=== PATIENT | female | born 1995 ===

== ENCOUNTER 2019-11-30 23:28 | Emergency (ER) | payer MEDICAID, SELFPAY ==
[2019-11-30 23:33] VITALS: BP 120/63; PULSE 88; RESP 18; TEMP 37.1; O2SAT 98; BMI 24.4
--- NOTE | 2019-11-30 23:45 | ED_ITS ---
HPI - Abdominal Pain General: Chief Complaint: Abdominal Pain Stated Complaint: abd pain Time Seen by Provider: 11/30/19 23:42 History of Present Illness: HPI narrative: Patient is a 24-year-old female comes to the ED with abdominal pain. Patient says pain started approximately 3 days ago. She describes the pain as sharp and aching pain in the epigastric and right upper quadrant of the abdomen. She rates the pain currently a 10 out of 10. She has had some nausea with this pain and says she has had 2 episodes of emesis. Denies any blood in the emesis. Patient says pain gets worse after she eats. She also says pain gets worse when she lays flat. Denies any fever, chills, diarrhea, constipation, blood in the stool, dysuria, hematuria, vaginal discharge or vaginal bleeding. Patient denies any chance of being and currently is control implant Nexplanon in [facility]. Associated Symptoms: Reports nausea and vomiting; Denies chills, constipation, diarrhea, dysuria, fever(s), hematochezia and hematuria Review of Systems Const: Denies: fever(s), chills or fatigue Eyes: Denies: change in vision or eye discomfort ENMT: Denies: throat pain, odynophagia, nasal discharge or nasal congestion Card: Denies: chest pain, palpitations, edema, swelling of feet/ankles, dyspnea on exertion or orthopnea Resp: Denies: dyspnea, productive cough or non-productive cough GI: Reports: abdominal pain (RUQ and epigastric region), nausea and vomiting; Denies: diarrhea, constipation or hematochezia : Denies: flank pain, dysuria or hematuria Musc: Denies: neck pain, back pain or extremity swelling Skin/Breast: Denies: rash or new lesions Neuro: Denies: headache(s), numbness in extremities or weakness in extremities Physical Exam Const: COMMON NORMALS: no acute distress, patient oriented x3, healthy appearing and alert GENERAL APPEARANCE: cooperative, comfortable and well hydrated HENMT: COMMON NORMALS: normocephalic HEAD & SCALP: normocephalic MOUTH: Normal oral and palatal mucosa present THROAT: posterior oropharynx normal and uvula midline Eye: COMMON NORMALS: Equal, round and reactive pupils present PUPIL: Yes Equal, round and reactive pupils present Neck/C-Spine: COMMON NORMALS: supple GENERAL: Yes normal visual inspection Resp: COMMON NORMALS: normal respiratory effort, No retractions, No use of accessory muscles and clear to auscultation bilaterally AUSCULTATION: clear to auscultation bilaterally Cardio: COMMON NORMALS: regular rate, regular rhythm, S1 normal heart sound present, S2 normal heart sound present, No gallops present (Cardio), No clicks present (Cardio), No murmurs present (Cardio) and Peripheral pulses 2+ throughout RATE: regular rate RHYTHM: regular rhythm HEART SOUNDS: S1 normal heart sound present and S2 normal heart sound present PERIPHERAL PULSES: Peripheral pulses 2+ throughout GI: COMMON NORMALS: Normal to inspection, nondistended, normoactive bowel sounds present, Soft to palpation and no masses AUSCULTATION: Yes normoactive bowel sounds PALPATION: Yes Soft to palpation and Yes Tenderness to palpation present (GI) Details: RUQ (positive delacruz sign) and other (epigastric region) : COMMON NORMALS: Yes no CVA tenderness BLADDER/KIDNEY EXAM: Yes no CVA tenderness Back/Pelvis: COMMON NORMALS: no CVA tenderness Extremity: COMMON NORMALS: normal to inspection, capillary refill normal and no pedal edema Neuro: COMMON NORMALS: patient oriented x3 SENSORIUM/ORIENTATION: Yes alert GAIT: Yes Normal gait present Skin: COMMON NORMALS: no rashes or lesions noted GENERAL SKIN EXAM: no rashes or lesions noted and dry skin Course Reevaluation(s): Reevaluation #1: I went in to check on patient and reevaluate pain and symptoms after GI cocktail Zofran and morphine was given. Patient says she is feeling a lot better and her symptoms have almost completely improved. Time: 01:01 Vital Signs: Vital signs: Vital Signs Temperature 98.7 F 11/30/19 23:33 Pulse Rate 81 12/01/19 01:30 Respiratory Rate 17 12/01/19 01:30 Blood Pressure 106/60 12/01/19 01:30 Pulse Oximetry 100 12/01/19 01:30 MDM - Abdominal Pain MDM Narrative: Medical decision making narrative: Patient is a 24-year-old female who comes to the ED with right upper quadrant and epigastric pain, nausea and vomiting. Physical exam showed a patient in no acute distress or pain. Patient had some mild epigastric tenderness and right upper quadrant tenderness with positive Delacruz sign. White blood cell count 3.4 and the rest CBC CMP and UA were unremarkable. Lipase 32 and hCG negative. Ultrasound of gallbladder was performed and showed no acute findings. Patient was given IV morphine, fluids, Zofran and pain improved. Acid reflux symptoms improved after GI cocktail. After treatment patient was feeling a lot better and ready to go home. Patient was diagnosed with acid reflux and biliary colic symptoms. She was discharged with a prescription for pantoprazole and Zofran. She is told to follow-up with her PCP in 7 to 10 days for reevaluation. Start with a clear liquid diet for the next 24 hours and advance as tolerated. Return to ED precautions given. Patient understood and agreed with plan. Lab Data: Attestation: I reviewed the patient's lab results. Labs: Lab Results 11/30/19 11/30/19 12/01/19 Range/Units 00:08 00:08 00:45 WBC 3.4 L (4.0-10.0) 10^3/ uL RBC 3.15 L (4.1-5.3) 10^6/u L Hgb 10.7 L (11.5-15.3) g/dL Hct 32.6 L (37.0-47.0) % MCV 103.5 H (81-99) fL MCH 34.0 (28.0-34.0) pg MCHC 32.8 (30.0-36.0) g/dL RDW 11.7 L (12.1-15.1) % Plt Count 195 (130-400) 10^3/c mm MPV 11.3 H (7.4-10.4) fL Neut % (Auto) 63.2 % Lymph % (Auto) 27.1 % [place] % (Auto) 8.5 % Eos % (Auto) 0.6 % Baso % (Auto) 0.3 % Neut # (Auto) 2.15 (1.8-7.7) 10^3/u L Lymph # (Auto) 0.9 (0.8-4.8) 10^3/u L [place] # (Auto) 0.3 (0.2-0.9) 10^3/u L Eos # (Auto) 0.0 (0.0-0.8) 10^3/u L Baso # (Auto) 0.0 (0.0-0.1) 10^3/u L Nucleated RBC % (a uto) 0 % Nucleated RBCs # 0.0 /100WBC Sodium 137 (136-145) mmol/L Potassium 3.9 (3.5-5.1) mmol/L Chloride 105 (98-107) mmol/L Carbon Dioxide 24 (22-29) mmol/L Anion Gap 11.9 (5-19) BUN 9 (6-20) mg/dL Creatinine 0.5 (0.5-0.9) mg/dL GFR Calculation 150.3 H (90-130) mL/min Glucose 102 (65-115) mg/dL Calculated Osmolal ity 280 L (285-295) mOsm/k g Calcium 8.5 (8.5-10.5) mg/dL Total Bilirubin 0.8 (0.15-1.2) mg/dL AST 21 (0-32) U/L ALT 16 (0-33) U/L Alkaline Phosphata se 61 (35-105) IU/L Total Protein 6.9 (6.6-8.7) g/dL Albumin 4.4 (3.5-5.2) g/dL Globulin 2.5 (1.3-4.6) g/dL Lipase 32 (13-60) U/L HCG, Qual Negative (Negative) Urine Color (Yellow) Urine Appearance (CLEAR) Urine pH (5-7) Ur Specific Gravit y (1.005-1.030) Urine Protein (Negative) Urine Glucose (UA) (Normal) Urine Ketones (Negative) Urine Blood (Negative) Urine Nitrate (Negative) Urine Bilirubin (NEGATIVE) Urine Urobilinogen (Negative) mg/dL Ur Leukocyte Vesta ase (Negative) 12/01/19 Range/Units 00:45 WBC (4.0-10.0) 10^3/ uL RBC (4.1-5.3) 10^6/u L Hgb (11.5-15.3) g/dL Hct (37.0-47.0) % MCV (81-99) fL MCH (28.0-34.0) pg MCHC (30.0-36.0) g/dL RDW (12.1-15.1) % Plt Count (130-400) 10^3/c mm MPV (7.4-10.4) fL Neut % (Auto) % Lymph % (Auto) % [place] % (Auto) % Eos % (Auto) % Baso % (Auto) % Neut # (Auto) (1.8-7.7) 10^3/u L Lymph # (Auto) (0.8-4.8) 10^3/u L [place] # (Auto) (0.2-0.9) 10^3/u L Eos # (Auto) (0.0-0.8) 10^3/u L Baso # (Auto) (0.0-0.1) 10^3/u L Nucleated RBC % (a uto) % Nucleated RBCs # /100WBC Sodium (136-145) mmol/L Potassium (3.5-5.1) mmol/L Chloride (98-107) mmol/L Carbon Dioxide (22-29) mmol/L Anion Gap (5-19) BUN (6-20) mg/dL Creatinine (0.5-0.9) mg/dL GFR Calculation (90-130) mL/min Glucose (65-115) mg/dL Calculated Osmolal ity (285-295) mOsm/k g Calcium (8.5-10.5) mg/dL Total Bilirubin (0.15-1.2) mg/dL AST (0-32) U/L ALT (0-33) U/L Alkaline Phosphata se (35-105) IU/L Total Protein (6.6-8.7) g/dL Albumin (3.5-5.2) g/dL Globulin (1.3-4.6) g/dL Lipase (13-60) U/L HCG, Qual (Negative) Urine Color Yellow (Yellow) Urine Appearance Clear (CLEAR) Urine pH 6 (5-7) Ur Specific Gravit y 1.015 (1.005-1.030) Urine Protein Neg (Negative) Urine Glucose (UA) Norm (Normal) Urine Ketones Negative (Negative) Urine Blood Neg (Negative) Urine Nitrate Negative (Negative) Urine Bilirubin Neg (NEGATIVE) Urine Urobilinogen Norm (Negative) mg/dL Ur Leukocyte Vesta ase Negative (Negative) Imaging Data ^: US: Attestation: I personally reviewed and interpreted this imaging study as follows : Radiologist's impression: Ultrasound gallbladder?prelim report no gallstones seen. Gallbladder wall normal thickness and no common bile duct obstruction seen. Normal and unremarkable ultrasound. Discharge Plan Discharge Patient Disposition: Home Clinical Impression: Biliary colic symptom Acid reflux Qualifiers: Esophagitis presence: esophagitis presence not specified Qualified Code(s): K21.9 - Gastro-esophageal reflux disease without esophagitis Condition: Stable Prescriptions: New Zofran 4 mg tablet 4 mg PO Q8H Qty: 10 RF: 0 pantoprazole 40 mg tablet,delayed release (DR/EC) 40 mg PO DAILY Qty: 30 RF: 0 Discharge Orders: Discharge Order (Routine); Ordered 12/01/19 Ordered By: Obinna Coronado Discharge Diet: Advance as tolerated and Clear Liquid Discharge Activity: Increase activity as tolerated Patient Instructions: Biliary Colic (ED), Clear Liquid Diet (ED), Gastroesophageal Reflux Disease (ED) Activity Restrictions/Additional Instructions: Follow-up with medical provider as directed in 7-10 days. Take medications as prescribed. Start with a clear liquid diet for the next 24 hours then slowly advance diet as tolerated. Return to the ER or your medical provider if condition worsens. Please read and understand discharge instructions. If any questions, please ask. Coding Level of Care Code ED Credit Consultant for Chg Fwd Exam Comprehensive
[2019-12-01] MEDS: ondansetron 2 mg/ML SDV 2 mL 4 MG IVP (00:12)
[2019-12-01 00:13] VITALS: RESP 16
[2019-12-01] MEDS: morphine 4 mg/mL SDV 1 mL 2 MG IVP (00:13)
[2019-12-01] MEDS: lidocaine 2% viscous 15 ML, aluminum-mag hydrox-simethicon 30 ML, sucralfate oral liq 1 GM PO (00:14)
[2019-12-01] MEDS: sodium chloride 0.9% 1,000 ML 999 ML IV (00:17)
[2019-12-01 00:36] LABS: Alanine Aminotransferase 16 U/L (0-33); Albumin Level 4.4 g/dL (3.5-5.2); Alkaline Phosphatase 61 IU/L (35-105); Blood Urea Nitrogen 9 mg/dL (6-20); Calcium 8.5 mg/dL (8.5-10.5); Carbon Dioxide 24 mmol/L (22-29); Chloride 105 mmol/L (98-107); Globulin 2.5 g/dL (1.3-4.6); Glomerular Filtration Rate 150.3 mL/min (90-130); Glucose 102 mg/dL (65-115); Lipase 32 U/L (13-60); Osmolality Calculated 280 mOsm/kg (285-295); Sodium 137 mmol/L (136-145); Total Bilirubin 0.8 mg/dL (0.15-1.2); Total Protein 6.9 g/dL (6.6-8.7)
[2019-12-01 00:37] LABS: Anion Gap 11.9 (5-19); Aspartate Amino Transferase 21 U/L (0-32); Potassium 3.9 mmol/L (3.5-5.1)
[2019-12-01 00:40] LABS: Basophils % 0.3 %; Eosinophils % 0.6 %; Hematocrit 32.6 % (37.0-47.0); Hemoglobin 10.7 g/dL (11.5-15.3); Lymphocytes # 0.9 10^3/uL (0.8-4.8); Lymphocytes % 27.1 %; Mean Corpuscular HGB Conc 32.8 g/dL (30.0-36.0); Mean Corpuscular Volume 103.5 fL (81-99); Mean Platelet Volume 11.3 fL (7.4-10.4); Monocytes # 0.3 10^3/uL (0.2-0.9); Monocytes % 8.5 %; Neutrophils # 2.15 10^3/uL (1.8-7.7); Neutrophils % 63.2 %; Nucleated Red Blood Cells % 0 %; Platelet Count 195 10^3/cmm (130-400); Red Blood Count 3.15 10^6/uL (4.1-5.3); Red Cell Distribution Width 11.7 % (12.1-15.1); White Blood Count 3.4 10^3/uL (4.0-10.0)
[2019-12-01 00:50] VITALS: BP 96/69; PULSE 65; RESP 16; O2SAT 100
[2019-12-01 00:55] LABS: Add Urine Microscopic? NO
[2019-12-01 01:17] LABS: Bilirubin Urine Neg (NEGATIVE); Blood Urine Neg (Negative); Glucose Urine UA Norm (Normal); HCG Qualitative Urine. Negative (Negative); Ketones Urine Negative (Negative); Leukocyte Esterase Urine Negative (Negative); Nitrate Urine Negative (Negative); Protein Urine Neg (Negative); Specific Gravity, Urine 1.015 (1.005-1.030); Urine Appearance Clear (CLEAR); Urine Color Yellow (Yellow); Urobilinogen Urine Norm (Negative); pH Urine 6 (5-7)
[2019-12-01 01:30] VITALS: BP 106/60; PULSE 81; RESP 17; O2SAT 100
[2019-12-01 02:07] VITALS: BP 98/68; PULSE 77; RESP 17; O2SAT 100
--- NOTE | 2019-12-01 23:56 | US_ITS ---
WS: [id number] RIGHT UPPER QUADRANT ULTRASOUND HISTORY: ruq tenderness with positive Delacruz's sign COMPARISON: None available. Liver: 11.3 cm in length. Normal size and echogenicity with no intrahepatic dilatation. No mass. Gallbladder: Normally distended gallbladder with no stones or wall thickening. CBD: 0.5 cm Pancreas: Normal size and echogenicity. Right kidney: 8.9 cm in length. Normal echogenicity with no mass or hydronephrosis. Aorta and IVC: Unremarkable. No ascites. US/US gall bladder [id number] IMPRESSION: Normal RIGHT upper quadrant ultrasound.
== END 2019-12-01 02:09 | disposition home or self-care (01) ==
PROVIDERS: Emergency Medicine; Emergency Provider Physician Assistant
DX: K21.9 Gastro-esophageal reflux disease without esophagitis (principal); K80.50 Calculus of bile duct without cholangitis or cholecystitis without obstruction
CPT/HCPCS: 12345; 36415; 76705; 80053; 81003; 81025; 83690; 85025; 96361; 96374; 96375; 99283; J2270; J2405; J7030

== ENCOUNTER 2019-12-05 17:41 | Emergency (ER) | payer MEDICAID, SELFPAY ==
[2019-12-05 17:58] VITALS: BP 112/66; PULSE 93; RESP 18; TEMP 37.1; O2SAT 100; BMI 23.3
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
[2019-12-05 18:40] LABS: Basophils % 0.6 %; Eosinophils % 0.6 %; Hematocrit 30.2 % (37.0-47.0); Hemoglobin 10.2 g/dL (11.5-15.3); Lymphocytes # 0.8 10^3/uL (0.8-4.8); Lymphocytes % 23.8 %; Mean Corpuscular HGB Conc 33.8 g/dL (30.0-36.0); Mean Corpuscular Hemoglobin 34.9 pg (28.0-34.0); Mean Corpuscular Volume 103.4 fL (81-99); Monocytes # 0.3 10^3/uL (0.2-0.9); Monocytes % 9.3 %; Neutrophils # 2.12 10^3/uL (1.8-7.7); Neutrophils % 65.4 %; Nucleated Red Blood Cells % 0 %; Platelet Count 222 10^3/cmm (130-400); Red Blood Count 2.92 10^6/uL (4.1-5.3); Red Cell Distribution Width 11.9 % (12.1-15.1); White Blood Count 3.2 10^3/uL (4.0-10.0)
[2019-12-05 19:03] LABS: Alanine Aminotransferase 17 U/L (0-33); Albumin Level 4.4 g/dL (3.5-5.2); Alkaline Phosphatase 63 IU/L (35-105); Anion Gap 8.8 (5-19); Aspartate Amino Transferase 19 U/L (0-32); Blood Urea Nitrogen 11 mg/dL (6-20); Calcium 8.2 mg/dL (8.5-10.5); Carbon Dioxide 26 mmol/L (22-29); Chloride 106 mmol/L (98-107); Globulin 2.6 g/dL (1.3-4.6); Glomerular Filtration Rate 121.8 mL/min (90-130); Glucose 94 mg/dL (65-115); Lipase 48 U/L (13-60); Osmolality Calculated 280 mOsm/kg (285-295); Potassium 3.8 mmol/L (3.5-5.1); Sodium 137 mmol/L (136-145); Total Bilirubin 0.8 mg/dL (0.15-1.2)
[2019-12-05] MEDS: iohexol 300 mg/mL 100 mL Btl IV (19:31)
[2019-12-05 19:34] VITALS: BP 123/78; PULSE 78; RESP 16; O2SAT 99
[2019-12-05 19:42] LABS: HCG Qualitative Urine. Negative (Negative)
[2019-12-05 19:43] LABS: Add Urine Microscopic? YES; Bilirubin Urine Neg (NEGATIVE); Blood Urine 3+ (Negative); Glucose Urine UA Norm (Normal); Ketones Urine Negative (Negative); Leukocyte Esterase Urine Negative (Negative); Nitrate Urine Negative (Negative); Protein Urine Neg (Negative); Specific Gravity, Urine 1.015 (1.005-1.030); Urine Color Yellow (Yellow); Urobilinogen Urine 4 mg/dL (Negative); pH Urine 8 (5-7)
[2019-12-05 19:50] LABS: Sulfosalicylic Acid Urine Negative (Negative)
[2019-12-05 19:52] LABS: Add Urine Culture? No; Bacteria Urine 1+; RBC Urine >100 /hpf (0-2); Squamous Epithelial Cell Urine 25-40 (0-5); WBC Urine 0-4 /hpf (0-5)
[2019-12-05 20:18] VITALS: BP 123/74; PULSE 78; RESP 16; O2SAT 99
== END 2019-12-05 20:20 | disposition home or self-care (01) ==
PROVIDERS: Emergency Provider Nurse Practitioner Family
DX: R10.9 Unspecified abdominal pain (principal)
CPT/HCPCS: 12345; 74177; 80053; 81001; 81025; 83690; 85025; 86850; 86900; 99283; Q9967

== ENCOUNTER → 2019-12-08 11:41 | Outpatient (BNVA) | payer MEDICAID, SELFPAY | PROVIDERS: Visit Provider Nurse Practitioner Family | DX: N93.9 Abnormal uterine and vaginal bleeding, unspecified (principal); V19.9XXA Pedal cyclist (driver) (passenger) injured in unspecified traffic accident, initial encounter; R31.9 Hematuria, unspecified; R31.0 Gross hematuria | CPT/HCPCS: 81000; 81025 ==

== ENCOUNTER 2019-12-16 05:21 | Emergency (ER) | payer MEDICAID, SELFPAY ==
[2019-12-16 05:28] VITALS: BP 104/47; PULSE 82; RESP 14; TEMP 36.7; O2SAT 98; BMI 29.9
[2019-12-16 05:31] VITALS: PULSE 76
--- NOTE | 2019-12-16 05:33 | XR_ITS ---
WS: [id number] Right foot, 3 views, 12/16/2019 Clinical Data: foot injury Comparison: None. Findings: No fractures or dislocations are seen. No bone destruction or erosion is noted. The joint spaces and soft tissues are normal. XR/XR foot RT min 3V* [id number] Impression: Negative right foot.
[2019-12-16 05:36] VITALS: BP 108/60; PULSE 73; RESP 14; O2SAT 97
--- NOTE | 2019-12-16 06:21 | PC.NURSE ---
XRAY IN ROOM
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
[2019-12-16 07:28] LABS: Add Urine Microscopic? YES; Bilirubin Urine Neg (NEGATIVE); Blood Urine 3+ (Negative); Glucose Urine UA Norm (Normal); Ketones Urine Negative (Negative); Leukocyte Esterase Urine Negative (Negative); Nitrate Urine Negative (Negative); Protein Urine Neg (Negative); Specific Gravity, Urine 1.015 (1.005-1.030); Urine Color Yellow (Yellow); Urobilinogen Urine Norm (Negative); pH Urine 8.5 (5-7)
[2019-12-16 07:29] LABS: Add Urine Culture? No; Bacteria Urine 1+; Mucus Urine 1+; RBC Urine 25-40 /hpf (0-2); Squamous Epithelial Cell Urine 25-40 (0-5); Sulfosalicylic Acid Urine Negative (Negative); Urine Appearance SL Hazy (CLEAR)
[2019-12-16 07:31] VITALS: BP 110/60; PULSE 73; RESP 16; O2SAT 100
--- NOTE | 2019-12-17 13:26 | DCPLANNER ---
ed case manager had message to schedule a follow up appointment for patient with Dr. Abdalla. ed case manager called the office of Dr. Abdalla, gave clinic patients information. ed case manager was told that patients information would be printed and reviewed. Clinic will call patient with appointment information.
--- NOTE | 2019-12-22 11:11 | DCPLANNER ---
post manager called Lia at Dr. Ferrell office to confirm if an appointment had been scheduled for patient. post manager was told that clinic has made several attempts to reach patient to schedule a follow up appointment for patient, and have not been able to speak with patient or leave a voicemail for patient.
== END 2019-12-16 07:32 | disposition home or self-care (01) ==
PROVIDERS: Emergency Provider Family Medicine
DX: S93.401A Sprain of unspecified ligament of right ankle, initial encounter (principal); S96.911A Strain of unspecified muscle and tendon at ankle and foot level, right foot, initial encounter; R31.9 Hematuria, unspecified; W51.XXXA Accidental striking against or bumped into by another person, initial encounter
CPT/HCPCS: 12345; 73630; 81001; 99282; 99283

== ENCOUNTER 2019-12-19 22:09 | Emergency (ER) | payer MEDICAID, SELFPAY ==
[2019-12-19 22:17] VITALS: BP 105/59; PULSE 84; RESP 16; TEMP 36.7; O2SAT 98; BMI 23.3
[2019-12-19 23:04] LABS: HCG Qualitative Urine. Negative (Negative)
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
[2019-12-19 23:20] LABS: Add Urine Microscopic? NO; Bilirubin Urine Neg (NEGATIVE); Blood Urine Neg (Negative); Glucose Urine UA Norm (Normal); Ketones Urine Negative (Negative); Leukocyte Esterase Urine Negative (Negative); Nitrate Urine Negative (Negative); Protein Urine Neg (Negative); Specific Gravity, Urine 1.023 (1.005-1.030); Urine Appearance Clear (CLEAR); Urine Color Yellow (Yellow); Urobilinogen Urine Norm (Negative); pH Urine 5 (5-7)
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
[2019-12-19 23:57] VITALS: BP 105/54; PULSE 74; RESP 17; O2SAT 100
[2019-12-20 01:12] LABS: Basophils % 0.5 %; Eosinophils % 0.5 %; Hematocrit 29.8 % (37.0-47.0); Lymphocytes # 0.9 10^3/uL (0.8-4.8); Lymphocytes % 23.9 %; Mean Corpuscular HGB Conc 33.6 g/dL (30.0-36.0); Mean Corpuscular Volume 101.4 fL (81-99); Mean Platelet Volume 11.1 fL (7.4-10.4); Monocytes # 0.2 10^3/uL (0.2-0.9); Neutrophils # 2.65 10^3/uL (1.8-7.7); Neutrophils % 68.8 %; Nucleated Red Blood Cells % 0 %; Platelet Count 211 10^3/cmm (130-400); Red Blood Count 2.94 10^6/uL (4.1-5.3); Red Cell Distribution Width 11.9 % (12.1-15.1); White Blood Count 3.9 10^3/uL (4.0-10.0)
[2019-12-20 01:28] LABS: Alanine Aminotransferase 12 U/L (0-33); Albumin Level 4.4 g/dL (3.5-5.2); Alkaline Phosphatase 75 IU/L (35-105); Anion Gap 9.8 (5-19); Aspartate Amino Transferase 19 U/L (0-32); Blood Urea Nitrogen 15 mg/dL (6-20); Calcium 9.1 mg/dL (8.5-10.5); Carbon Dioxide 27 mmol/L (22-29); Chloride 106 mmol/L (98-107); Globulin 2.8 g/dL (1.3-4.6); Glomerular Filtration Rate 121.8 mL/min (90-130); Glucose 97 mg/dL (65-115); Osmolality Calculated 284 mOsm/kg (285-295); Potassium 3.8 mmol/L (3.5-5.1); Sodium 139 mmol/L (136-145); Total Protein 7.2 g/dL (6.6-8.7)
[2019-12-20 02:27] VITALS: BP 115/71; PULSE 69; RESP 18; O2SAT 100
== END 2019-12-20 02:27 | disposition home or self-care (01) ==
PROVIDERS: Nurse Practitioner Family; Emergency Provider Emergency Medicine
DX: N93.8 Other specified abnormal uterine and vaginal bleeding (principal)
CPT/HCPCS: 12345; 76830; 76856; 76857; 80053; 81003; 81025; 85025; 99282; 99283

== ENCOUNTER → 2020-01-12 11:46 | Outpatient (BNVA) | payer MEDICAID, SELFPAY | PROVIDERS: Visit Provider Nurse Practitioner Family | DX: N93.9 Abnormal uterine and vaginal bleeding, unspecified (principal); R53.83 Other fatigue; R10.84 Generalized abdominal pain; Z79.899 Other long term (current) drug therapy | CPT/HCPCS: 80053; 81000; 81025; 82306; 82607; 84443; 85025 ==

== ENCOUNTER → 2020-01-13 08:46 | Outpatient (BNVA) | payer MEDICAID, SELFPAY | PROVIDERS: Visit Provider Nurse Practitioner Family | DX: R79.89 Other specified abnormal findings of blood chemistry (principal) | CPT/HCPCS: 86705; 86706; 86709; 86803; 87340 ==